=== PATIENT | female | born 1930 | race African-American/Black ===

== ENCOUNTER 2018-10-20 12:28 | Observation (INO) ==
[2018-10-20] MEDS ORDERED: SODIUM CHLORIDE 0.9% 1,000 ML IV STA (13:13)
[2018-10-20 13:42] LABS: Apearance,Urine Slightly Hazy (Clear); Bacteria,Urine Occasional /HPF (Few); Bilirubin,Urine Negative (Negative); Blood, Urine Negative (Negative); Glucose,Urine (UA) Negative (Negative); Hyaline Casts,Urine 6 /LPF (0-3); Ketones,Urine 5 mg/dL (Negative); Mucus,Urine Many /LPF (Occasional); Nitrite,Urine Negative (Negative); Protein,Urine 100 MG/DL; RBC,Urine 11 /HPF (0-4); Squamous Epithelial Cell,Urine Occasional /HPF (0-10); Urine Specific Gravity 1.025 (1.001-1.035); WBC,Urine 19 /HPF (0-6)
[2018-10-20 13:44] LABS: Basophils % 0.5 % (0.0-0.8); Eosinophils # 0.1 10*3/uL (0.0-0.87); Eosinophils % 2.1 % (0.00-10.9); Hematocrit 34.1 VOL% (35.7-47.0); Hemoglobin 12.1 GM/DL (12.0-16.0); Immature Granulocytes % 0.5 %; Immature Granulocytes Absolute 0.03 #; Lymphocytes # 2.4 10*3/uL (1.4-4.0); Lymphocytes % 37.3 % (21.3-54.2); Mean Corpuscular HGB Conc 35.5 GM/DL (32-36); Mean Corpuscular Volume 82.6 FL (87-102); Mean Platelet Volume 10.1 FL (9.6-12.0); Monocytes % 9.4 % (1.7-12.7); Neutrophils % 50.2 % (38.7-73.9); Platelet Count 232 T/CUMM (130-400); Red Blood Count 4.13 MC/CUMM (3.8-5.5); Red Cell Distribution Width 13.9 % (9.3-17.3); White Blood Count 6.5 T/CUMM (4-12)
[2018-10-20 13:48] LABS: Urine Color Dark yellow (Yellow)
[2018-10-20] MEDS ORDERED: HALOPERIDOL 5 MG/ML AMP IM STA (14:01)
[2018-10-20] MEDS ORDERED: HALOPERIDOL 5 MG/ML AMP ONE (14:01)
[2018-10-20 14:03] LABS: Albumin 3.4 G/DL (3.4-5.0); Bilirubin,Total 0.7 MG/DL (0.2-1.0); Total Protein 7.3 G/DL (6.4-8.3)
[2018-10-20] MEDS ORDERED: LEVOFLOXACIN INJ 750 MG in PREMIX 1 EACH IV STA (14:16)
[2018-10-20] MEDS: PHENAZOPYRIDINE 95 MG TABLET PO STA ×2 (15:07→15:22)
[2018-10-20] MEDS ORDERED: ACETAMINOPHEN 325 MG TABLET PO PRN (15:41)
[2018-10-20] MEDS ORDERED: ONDANSETRON 4 MG/2 ML VIAL IV PRN (15:41)
[2018-10-20] MEDS ORDERED: LORazepam 0.5 MG TABLET PO PRN (15:51)
[2018-10-20 16:20] LABS: Thyroid Stimulating Hormone 0.705 uIU/ml (0.358-3.74)
[2018-10-20] MEDS: SODIUM CHLORIDE 0.9% 1,000 ML IV SCH (18:11)
[2018-10-20] MEDS: NETARSUDIL LEFT EYE SCH (20:44)
[2018-10-20] MEDS: DONEPEZIL 10 MG TABLET PO SCH (20:57)
[2018-10-20] MEDS: traZODone 50 MG TABLET PO SCH (20:58)
[2018-10-20] MEDS: MEMANTINE 10 MG TABLET PO SCH (20:58)
[2018-10-20] MEDS: QUEtiapine 25 MG TABLET PO SCH (20:58)
[2018-10-20] MEDS: MULTIVITAMIN (OCUVITE) TABLET PO SCH (20:58)
[2018-10-20] MEDS: MEGESTROL 40 MG TABLET PO SCH (20:58)
[2018-10-20] MEDS: ENOXAPARIN 40 MG/0.4 ML SYRINGE SUBCUT SCH (20:59)
[2018-10-20] MEDS ORDERED: DORZOLAMIDE/TIMOLOL OPH SOLN 10 ML BOTTLE BOTH EYES SCH (21:00)
[2018-10-20] MEDS: LATANOPROST 0.005% OPH SOLN 2.5 ML BOTTLE BOTH EYES SCH (21:00)
[2018-10-21] MEDS: SODIUM CHLORIDE 0.9% 1,000 ML IV SCH ×4 (00:39→21:35)
[2018-10-21 05:33] LABS: Basophils % 0.4 % (0.0-0.8); Eosinophils # 0.1 10*3/uL (0.0-0.87); Eosinophils % 1.4 % (0.00-10.9); Hematocrit 30.3 VOL% (35.7-47.0); Hemoglobin 10.8 GM/DL (12.0-16.0); Immature Granulocytes % 0.4 %; Immature Granulocytes Absolute 0.03 #; Lymphocytes % 42.4 % (21.3-54.2); Mean Corpuscular HGB Conc 35.6 GM/DL (32-36); Monocytes % 8.1 % (1.7-12.7); Neutrophils % 47.3 % (38.7-73.9); Platelet Count 213 T/CUMM (130-400); Red Blood Count 3.65 MC/CUMM (3.8-5.5); Red Cell Distribution Width 13.9 % (9.3-17.3); White Blood Count 7.1 T/CUMM (4-12)
[2018-10-21 06:15] LABS: Calcium 8.6 MG/DL (8.5-10.1); Osmolality,Calculated 285.7 MOS/KG (273-304); Risk Ratio 4.33; VLDL CHOLESTEROL 17.4 MG/DL
[2018-10-21] MEDS: NEBIVOLOL 5 MG TABLET PO SCH (08:30)
[2018-10-21] MEDS: VENLAFAXINE 100 MG TABLET PO SCH (08:31)
[2018-10-21] MEDS: DORZOLAMIDE/TIMOLOL OPH SOLN 10 ML BOTTLE LEFT EYE SCH ×2 (08:31→21:09)
[2018-10-21] MEDS: PANTOPRAZOLE 40 MG TABLET PO SCH (08:31)
[2018-10-21] MEDS: MEMANTINE 10 MG TABLET PO SCH ×2 (08:31→21:08)
[2018-10-21] MEDS: MULTIVITAMIN (OCUVITE) TABLET PO SCH ×2 (08:31→21:13)
[2018-10-21] MEDS: MEGESTROL 40 MG TABLET PO SCH ×3 (08:31→21:08)
[2018-10-21] MEDS ORDERED: LEVOFLOXACIN INJ 500 MG in PREMIX 1 EACH IV SCH (15:00)
[2018-10-21] MEDS: NETARSUDIL LEFT EYE SCH (18:03)
[2018-10-21] MEDS: DONEPEZIL 10 MG TABLET PO SCH (21:07)
[2018-10-21] MEDS: traZODone 50 MG TABLET PO SCH (21:07)
[2018-10-21] MEDS: QUEtiapine 25 MG TABLET PO SCH (21:08)
[2018-10-21] MEDS: ENOXAPARIN 40 MG/0.4 ML SYRINGE SUBCUT SCH (21:08)
[2018-10-21] MEDS: LATANOPROST 0.005% OPH SOLN 2.5 ML BOTTLE BOTH EYES SCH (21:09)
[2018-10-22] MEDS: SODIUM CHLORIDE 0.9% 1,000 ML IV SCH ×2 (05:19→09:00)
[2018-10-22] MEDS: MEGESTROL 40 MG TABLET PO SCH ×2 (08:53→14:47)
[2018-10-22] MEDS: NEBIVOLOL 5 MG TABLET PO SCH (08:54)
[2018-10-22] MEDS: MEMANTINE 10 MG TABLET PO SCH (08:54)
[2018-10-22] MEDS: PANTOPRAZOLE 40 MG TABLET PO SCH (08:54)
[2018-10-22] MEDS: MULTIVITAMIN (OCUVITE) TABLET PO SCH (08:54)
[2018-10-22] MEDS: VENLAFAXINE 100 MG TABLET PO SCH (08:54)
[2018-10-22] MEDS: DORZOLAMIDE/TIMOLOL OPH SOLN 10 ML BOTTLE LEFT EYE SCH (08:59)
[2018-10-22] MEDS ORDERED: CIPROFLOXACIN 500 MG TABLET PO SCH (14:00)
[2018-10-22] MEDS ORDERED: amLODIPine 10 MG TABLET PO SCH (14:00)
[2018-10-22 16:03] VITALS: BP 130/74
[2018-10-22] MEDS ORDERED: ZALEPLON 5 MG CAPSULE PO SCH (21:00)
[2018-10-22] MEDS ORDERED: CRANBERRY C BACILLUS COAG PO SCH (21:00)
[2018-10-22] MEDS ORDERED: [UNRECOGNIZED DRUG - OTHER] PO SCH (21:00)
== END 2018-10-22 18:20 | disposition home health service (06) ==
LOC: N.ED 12:28 → N.EDINP 12:28 → N.5E 16:54
PROVIDERS: ADMIT Family Medicine; ATTEND Family Medicine